=== PATIENT | male | born 1985 | race Caucasian/White ===

== ENCOUNTER 2020-01-26 01:14 | Outpatient (CLI) | payer OTHER, SELFPAY ==
--- NOTE | 2020-01-26 | DI.US_ITS ---
EXAM: US THYROID and U/S soft tissue head or neck CLINICAL HISTORY: NON TOXIC THYROID NODULE, E04.1. TECHNIQUE: Ultrasound thyroid performed using standard protocol. COMPARISON: No previous for comparison. FINDINGS: ISTHMUS: 2 mm RIGHT LOBE: Size: 4.5 x 2.0 x 1.8 cm Echogenicity: Normal. Vascularity: Normal. Nodules: There is a hypoechoic solid ill-defined nodule in the mid lobe. It measures 0.8 x 0.4 x 0.7 cm. No internal blood flow or echogenic foci are noted. LEFT LOBE: Size: 3.8 x 1.8 x 1.1 cm Echogenicity: Normal. Vascularity: Normal. Nodules: None. OTHER FINDINGS: The right neck was evaluated sonographically. The palpable area corresponds to a selma in of sonographically benign-appearing lymph nodes. The largest measures 2.3 cm in length. No suspi cious cystic or solid masses are seen sonographically. IMPRESSION: 1. 0.8 x 0.4 x 0.7 cm hypoechoic nodule in the right lobe. This corresponds with TI-RADS level 4. DATA REPOSITORY:
== END 2020-01-26 01:34 ==
PROVIDERS: PCP Nurse Practitioner Gerontology; Visit Provider Naturopath
DX: E04.1 Nontoxic single thyroid nodule (principal)
CPT/HCPCS: 76536

== ENCOUNTER 2020-03-02 03:34 | Outpatient (CLI) | payer OTHER, SELFPAY ==
[2020-03-02 13:35] LABS: FREE T4 0.96 ng/dL (0.76-1.46); TSH 1.35 uIU/mL (0.36-3.74)
== END 2020-03-02 03:54 ==
PROVIDERS: PCP Naturopath; Visit Provider Internal Medicine
DX: E04.1 Nontoxic single thyroid nodule (principal)
CPT/HCPCS: 36415; 84439; 84443

== ENCOUNTER 2020-10-05 02:26 | Outpatient (CLI) | payer OTHER, SELFPAY ==
[2020-10-06 12:51] LABS: COVID-19 RT-PCR UVMMC Result Negative (Negative)
== END 2020-10-05 02:27 | disposition home or self-care (01) ==
LOC: LBO 02:26
PROVIDERS: PCP Naturopath; Visit Provider Registered Nurse
DX: Z20.822 Contact with and (suspected) exposure to COVID-19 (principal)
CPT/HCPCS: U0003